=== PATIENT | male | born 1985 | race Two or more races ===

== ENCOUNTER 2022-09-13 15:17 | Emergency (ER) | payer OTHER ==
[~2022-09-13] VITALS: Ht 182.9 cm; Wt 127.3 kg
[2022-09-13 15:40] VITALS: BP 135/98
[2022-09-13] MEDS ORDERED: HYDR25TA2 PO (16:07)
== END 2022-09-13 16:28 ==
LOC: EMS 15:21
DX: I10 Essential (primary) hypertension (principal)
CPT/HCPCS: 93005; 99283